=== PATIENT | male | born 1975 | race African-American/Black ===

== ENCOUNTER 2017-08-12 00:06 | Emergency (ER) | payer OTHER ==
[~2017-08-12] VITALS: Ht 170.2 cm; Wt 71.4 kg
[~2017-08-12 00:06] MED LIST: BACLOFEN10 MG PO; BACTRIM,SEPT1 TABLET PO; BENTYL20 MG PO; CLEOCIN300 MG PO; ERYTHROMYC1 APPLICAT LEFT EYE; FLEXERIL10 MG PO; KEFLEX500 MG PO; LORTAB 5-325 M1 EACH PO; MICONAZOLE NITR30 GM TP; MOTRIN600 MG PO; NAPROSYN500 MG PO; NAPROXEN500 MG PO; NO HOME MEDS; NOHOMEMEDS; NORCO 5/3251 TABLET PO; PERCOCET 10/1 TABLET PO; PERCOCET 5/31 TABLET PO; PREDNISONE10 MG PO; TRAMADOL HCL50 MG PO; VICODIN 5-3001 EACH PO; ZOFRAN ODT8 MG PO
[2017-08-12] MEDS ORDERED: KEFLEX500 MG PO (02:42)
[2017-08-12] MEDS ORDERED: MOTRIN600 MG PO (02:42)
[2017-08-12] MEDS ORDERED: NORCO 7.5/321 TABLET PO (02:42)
[2017-08-12 03:19] VITALS: BP 122/78
== END 2017-08-12 03:20 | disposition home or self-care (01) ==
LOC: EME 00:06
DX: S66.222A Laceration of extensor muscle, fascia and tendon of left thumb at wrist and hand level, initial encounter (principal); W26.0XXA Contact with knife, initial encounter; Z23 Encounter for immunization; F17.200 Nicotine dependence, unspecified, uncomplicated
CPT/HCPCS: 99281; 99285

== ENCOUNTER 2018-01-01 08:33 | Emergency (ER) | payer OTHER ==
[~2018-01-01] VITALS: Ht 170.2 cm; Wt 77.0 kg
[~2018-01-01 08:33] MED LIST changes: +NORCO 7.5/321 TABLET PO
[2018-01-01] MEDS ORDERED: ULTRAM50 MG PO (10:58)
[2018-01-01] MEDS ORDERED: FLEXERIL10 MG PO (10:58)
[2018-01-01] MEDS ORDERED: NAPROSYN500 MG PO (10:58)
[2018-01-01 11:23] VITALS: BP 138/78
== END 2018-01-01 11:23 | disposition home or self-care (01) ==
LOC: EME 08:33
DX: M54.16 Radiculopathy, lumbar region (principal); M25.552 Pain in left hip; M51.37 Other intervertebral disc degeneration, lumbosacral region; F17.200 Nicotine dependence, unspecified, uncomplicated
CPT/HCPCS: 72100; 73502; 99281; 99284

== ENCOUNTER 2018-01-12 03:38 | Emergency (ER) | payer OTHER ==
[~2018-01-12] VITALS: Ht 170.2 cm; Wt 72.7 kg
[~2018-01-12 03:38] MED LIST changes: +ULTRAM50 MG PO
[2018-01-12 08:36] LABS: BASOPHIL (%) 0.7 % (0-1); BASOPHIL COUNT 0.1 K/uL (0-0.1); EOSINOPHIL (%) 1.2 % (0-5); EOSINOPHIL COUNT 0.1 K/uL (0-0.3); HEMATOCRIT 41.6 % (38.0-50.0); HEMOGLOBIN 14.9 G/DL (12.5-16.6); IMMATURE GRANULOCYTE (%) 0.3 % (0.0-0.7); LYMPHOCYTE (%) 43.3 % (15-42); LYMPHOCYTE COUNT 3.8 K/uL (1.0-2.8); MCH 31.8 PG (29.0-34.0); MCHC 35.8 G/DL (30.0-36.0); MCV 88.9 FL (86-99); MONOCYTE (%) 8.5 % (3-12); MONOCYTE COUNT 0.7 K/uL (0-0.8); PLATELET COUNT 270 K/uL (156-360); RBC DIS.WIDTH-CV 12.5 % (11.8-14.6); RBC DIS.WIDTH-SD 40.7 % (39-53); RED BLOOD COUNT 4.68 M/uL (4.00-5.50); WHITE BLOOD COUNT 8.7 K/uL (4.1-10.2)
[2018-01-12 08:48] LABS: CHLORIDE 104 mEq/L (99-109); POTASSIUM 3.4 mEq/L (3.7-5.4); SODIUM 139 mEq/L (136-147)
[2018-01-12 08:50] LABS: GLUCOSE 88 mg/dL (70-99)
[2018-01-12 08:54] LABS: CREATININE 0.9 mg/dL (0.6-1.3); GFR ESTIMATE (CALCULATED) > 59 mL/min/ (58.99-99999)
[2018-01-12 08:55] LABS: UREA NITROGEN (BUN) 11 mg/dL (9-23)
[2018-01-12 08:57] LABS: CREATINE KINASE 435 IU/L (1-294)
[2018-01-12 09:16] LABS: ERTH.SED.RATE 5 MM/HR (0-15)
[2018-01-12 09:23] LABS: APPEARANCE CLEAR ((CLEAR)); BILIRUBIN NEGATIVE; BLOOD NEGATIVE; COLOR YELLOW ((YELLOW)); GLUCOSE (STRIP) NEGATIVE; KETONES 5; LEUKOCYTES NEGATIVE; NITRITE NEGATIVE; PROTEIN (STRIP) NEGATIVE; UCUL ADDED? NO; UROBILINOGEN 0.2 MG/DL (0.2-1.0)
[2018-01-12 09:25] LABS: C-REACTIVE PROTEIN < 1.0 MG/L (0-10)
[2018-01-12 09:33] LABS: AMPHETAMINE PRESUMPTIVE POSITIVE (500 ng/mL); BARBITURATES NEGATIVE (200 ng/mL); BENZODIAZEPINES PRESUMPTIVE POSITIVE (150 ng/mL); BUPRENORPHINE NEGATIVE (10 ng/mL); COCAINE NEGATIVE (150 ng/mL); METHADONE NEGATIVE (200 ng/mL); METHAMPHETAMINE PRESUMPTIVE POSITIVE (500 ng/mL); OPIATES (MORPHINE) PRESUMPTIVE POSITIVE (100 ng/mL); OXYCODONE NEGATIVE (100 ng/mL); PHENCYCLIDINE NEGATIVE (25 ng/mL); PROPOXYPHENE NEGATIVE (300 ng/mL); THC CANNABINOIDS PRESUMPTIVE POSITIVE (50 ng/mL); TRICYCLIC ANTIDEPRESSANTS NEGATIVE (300 ng/mL)
[2018-01-12] MEDS ORDERED: FLEXERIL10 MG PO (09:43)
[2018-01-12 09:54] VITALS: BP 129/79
[2018-01-12 10:10] LABS: BENZODIAZEPINES, URINE SCREEN Negative (200 ng/mL)
== END 2018-01-12 10:27 | disposition home or self-care (01) ==
LOC: EME 03:38
PROVIDERS: Emergency Medicine
DX: M54.42 Lumbago with sciatica, left side (principal); M62.838 Other muscle spasm; M60.9 Myositis, unspecified; F19.10 Other psychoactive substance abuse, uncomplicated; G89.29 Other chronic pain; F17.200 Nicotine dependence, unspecified, uncomplicated
CPT/HCPCS: 73502; 80048; 81003; 82550; 84999; 85025; 85651; 86140; 99281; 99285; J2270